=== PATIENT | male | born 1980 | race Caucasian/White ===

== ENCOUNTER 2017-07-15 22:18 | Emergency (ER) | payer OTHER ==
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
[2017-07-15 22:33] VITALS: BP 125/78; PULSE 76; TEMP 98.5; BMI 26.6
[2017-07-15] MEDS ORDERED: IBUPROFEN 600 MG TABLET (FP) PO ONE ×2 (22:39→22:45)
[2017-07-15] MEDS ORDERED: METHOCARBAMOL 500 MG TABLET PO ONE (22:39)
[2017-07-15] MEDS ORDERED: BACITRACIN 15 GM TUBE TOPICAL OINTMENT TP ONE (22:40)
[2017-07-15] MEDS ORDERED: METHOCARBAMOL 500 MG TABLET ONE (22:45)
== END 2017-07-15 22:53 | disposition home or self-care (01) ==
LOC: FER 22:18
CPT/HCPCS: 99281-25

== ENCOUNTER 2021-10-10 18:31 | Emergency (ER) | payer BC, OTHER ==
[2021-10-10 18:57] VITALS: BP 144/89; PULSE 99; TEMP 98.1; BMI 25.8
[2021-10-10] MEDS ORDERED: LIDOCAINE HCL 1%, 10 MG/ML (20ML VIAL) ONE (19:25)
== END 2021-10-10 19:59 | disposition home or self-care (01) ==
LOC: FER 18:31
DX: L02.31 Cutaneous abscess of buttock (principal); L03.317 Cellulitis of buttock
CPT/HCPCS: 99283-25; C9803; U0003; U0005

== ENCOUNTER 2021-11-07 11:40 | Emergency (ER) | payer BC ==
[2021-11-07 12:03] VITALS: BP 153/95; PULSE 80; TEMP 98.9; BMI 25.8
[2021-11-07] MEDS ORDERED: ACETAMINOPHEN 325 MG TABLET (FP) PO ONE (12:13)
[2021-11-07] MEDS ORDERED: ACETAMINOPHEN 325 MG TABLET (FP) ONE (12:51)
[2021-11-09 00:07] LABS: SARS-CoV-2 NAA Detected (Not Detected)
== END 2021-11-07 13:26 | disposition home or self-care (01) ==
LOC: FER 11:40
DX: R51.9 Headache, unspecified (principal)
CPT/HCPCS: 99283-25; C9803; U0003; U0005

== ENCOUNTER 2023-04-18 22:23 | Emergency (ER) | payer BC ==
[2023-04-18 22:35] VITALS: BP 135/85; PULSE 88; RESP 16; TEMP 98; BMI 25.8
[2023-04-18] MEDS ORDERED: SULFAMETHOXAZOLE/TRIMETHOPRIM 800MG/160MG D.S. TABLET PO ONE (22:49)
[2023-04-18] MEDS ORDERED: SULFAMETHOXAZOLE/TRIMETHOPRIM 800MG/160MG D.S. TABLET ONE (22:51)
== END 2023-04-18 22:54 | disposition home or self-care (01) ==
LOC: FER 22:23
DX: L02.215 Cutaneous abscess of perineum (principal)
CPT/HCPCS: 99283-25